=== PATIENT | female | born 1970 | race Caucasian/White ===

== ENCOUNTER 2024-02-27 22:05 | Observation (INO) | payer BC ==
[~2024-02-27 22:05] MED LIST: Iopamidol 370 76% 100 ML VIAL ONE
[2024-02-27 23:50] LABS: #Basophils 0.03 10x3/uL (0.0-0.2); #Eosinphils 0.12 10x3/uL (0.0-0.5); #Monocytes 0.52 10x3/uL (0.0-1.1); #Neutrophils 2.91 10x3/uL (1.5-8.4); %Basophils 0.5 % (0.0-2.0); %Eosinophils 1.9 % (0.0-6.0); %Monocytes 8.1 % (0.0-10.0); %Neutrophils 45.3 % (40.0-75.0); Hematocrit 38.6 % (34.9-44.5); Hemoglobin 13.2 g/dL (12.0-15.5); Mean Corpuscular HGB CONC 34.2 g/dL (32.0-36.0); Mean Corpuscular Hemoglobin 33.8 pg (27.0-33.0); Mean Corpuscular Volume 98.7 fL (81.6-98.3); Mean Platelet Volume 9.3 fL (7.4-10.4); Platelet Count 280 10x3/uL (150-450); RBC Distribution Width 12.7 % (11.5-14.5); Red Blood Cell (RBC) Count 3.91 10x6/uL (3.90-5.03); White Blood Cell (WBC) Count 6.4 10x3/uL (3.5-10.5)
[2024-02-27 23:52] LABS: PTT 27.6 sec (22.0-33.0); Prothrombin Time 10.7 sec (9.5-12.1)
[2024-02-27 23:56] LABS: ALT (SGPT) 15 U/L (8-55); AST (SGOT) 22 U/L (5-34); Albumin 3.8 g/dL (3.5-5.0); Alkaline Phosphatase 86 U/L (40-110); Anion Gap 14 mmol/L (10-20); BUN (Urea Nitrogen) 19 mg/dL (9.8-20.1); Bilirubin, Total 0.2 mg/dL (0.2-1.2); Calc. Creatinine Clearance 0 mL/min (70-130); Calcium 9.1 mg/dL (7.8-10.44); Carbon Dioxide 24 mmol/L (22-29); Chloride 103 mmol/L (98-107); Estimated GFR 74; Globulin 3.1 g/dL (2.4-3.5); Glucose 81 mg/dL (70-105); Potassium 3.5 mmol/L (3.5-5.1); Protein, Total 6.9 g/dL (6.0-8.3); Sodium 137 mmol/L (136-145)
[2024-02-28 00:02] LABS: Troponin I 0.013 ng/mL (< 0.028)
[2024-02-28 01:29] LABS: Magnesium 1.7 mg/dL (1.6-2.6)
[2024-02-28] MEDS: Sodium Chloride 0.9% 1,000 ML IV SCH (02:07)
[2024-02-28 02:34] VITALS: BMI 24.0
[2024-02-28 04:11] LABS: #Basophils 0.03 10x3/uL (0.0-0.2); #Eosinphils 0.11 10x3/uL (0.0-0.5); #Monocytes 0.43 10x3/uL (0.0-1.1); #Neutrophils 3.54 10x3/uL (1.5-8.4); %Basophils 0.5 % (0.0-2.0); %Eosinophils 1.7 % (0.0-6.0); %Lymphocytes 35.8 % (18.0-47.0); %Monocytes 6.7 % (0.0-10.0); %Neutrophils 55.1 % (40.0-75.0); Hematocrit 39.4 % (34.9-44.5); Hemoglobin 13.4 g/dL (12.0-15.5); Mean Corpuscular Hemoglobin 33.1 pg (27.0-33.0); Mean Corpuscular Volume 97.3 fL (81.6-98.3); Mean Platelet Volume 9.5 fL (7.4-10.4); Platelet Count 291 10x3/uL (150-450); RBC Distribution Width 12.4 % (11.5-14.5); Red Blood Cell (RBC) Count 4.05 10x6/uL (3.90-5.03); White Blood Cell (WBC) Count 6.4 10x3/uL (3.5-10.5)
[2024-02-28 04:27] LABS: Anion Gap 12 mmol/L (10-20); BUN (Urea Nitrogen) 16 mg/dL (9.8-20.1); Calc. Creatinine Clearance 64 mL/min (70-130); Calcium 9.3 mg/dL (7.8-10.44); Carbon Dioxide 26 mmol/L (22-29); Cardiac Risk 4.1 (Less than 4.5); Chloride 106 mmol/L (98-107); Cholesterol 199 mg/dl (< 200 Desired); Estimated GFR 77; Glucose 87 mg/dL (70-105); HDL Cholesterol 48 mg/dL (>60 Neg Risk); LDL Cholesterol, Calculated 123 mg/dL; Potassium 3.7 mmol/L (3.5-5.1); Sodium 140 mmol/L (136-145); Triglycerides 141 mg/dL (Less than 150)
[2024-02-28 04:43] LABS: Syphilis Antibody Nonreactive (Nonreactive); Syphilis Antibody Index 0.08 S/CO (<1.00 Non-Reactive)
[2024-02-28] MEDS: Aspirin 81 mg Enteric Coated Tablet PO SCH (10:27)
[2024-02-28] MEDS: Enoxaparin 40 MG (0.4 mL) SYRINGE SC SCH (10:27)
[2024-02-28] MEDS ORDERED: Magnevist 469MG/ML 20 ML VIAL ONE (12:58)
[2024-02-28 13:42] LABS: Hemoglobin A1c 5.1 % (4.0-6.0)
[2024-02-28 14:28] VITALS: BP 125/62; TEMP 98.1
[2024-03-03 13:09] LABS: ANA Symphony (Qualitative) Negative (Negative); ANA Symphony (Quantitative) 0.3 Ratio (< 0.7 Negative); dsDNA IgG Antibody 2.4 IU/mL (<10 Negative)
== END 2024-02-28 15:30 | disposition home or self-care (01) ==
LOC: CSHERS 22:05 → CSHTELE 02-28 00:20
PROVIDERS: ADMIT Family Medicine; ATTEND Nurse Practitioner Acute Care
PROC: B246ZZZ Ultrasonography of Right and Left Heart (ICD-10-PCS; principal; 2024-02-28)
DX: R20.0 Anesthesia of skin (principal); R29.810 Facial weakness; R06.02 Shortness of breath; K58.2 Mixed irritable bowel syndrome; K21.9 Gastro-esophageal reflux disease without esophagitis; E78.5 Hyperlipidemia, unspecified; Z88.1 Allergy status to other antibiotic agents; Z90.710 Acquired absence of both cervix and uterus; Z90.49 Acquired absence of other specified parts of digestive tract; Z79.899 Other long term (current) drug therapy
CPT/HCPCS: 36415; 70450; 70496; 70498; 70553; 71045; 80048; 80053; 80061; 83036; 83735; 84484; 85025; 85610; 85730; 86038; 86225; 86780; 93005; 93306; A9579; G0378; J7050; Q9967